=== PATIENT | female | born 2000 | race Two or more races ===

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

== ENCOUNTER 2023-02-16 16:54 | Outpatient (CLI) | payer MEDICAID ==
[2023-02-16 20:51] LABS: BASOPHILS % (AUTO) 0.5 %; EOSINOPHILS # (AUTO) 0.2 10^3/uL (0.0-0.7); EOSINOPHILS % (AUTO) 2.2 %; HCT - HEMATOCRIT 38.3 % (37.0-47.0); HGB - HEMOGLOBIN 12.4 g/dL (12.0-16.0); LYMPHOCYTES # (AUTO) 2.4 10^3/uL (1.5-3.5); LYMPHOCYTES % (AUTO) 27.1 %; MEAN CORPUSCULAR HEMOGLOBIN 26.6 pg (27.0-31.0); MEAN CORPUSCULAR HGB CONC 32.4 g/dL (32.0-36.0); MEAN PLATELET VOLUME 10.5 fL (7.9-10.8); MONOCYTES # (AUTO) 0.6 10^3/uL (0.0-1.0); MONOCYTES % (AUTO) 6.3 %; NEUTROPHILS # (AUTO) 5.6 10^3/uL (1.5-6.6); NEUTROPHILS % (AUTO) 63.7 %; PLT - PLATELET COUNT 336 10^3/uL (130-450); RED BLOOD COUNT 4.67 10^6/uL (4.20-5.40); WHITE BLOOD COUNT 8.8 x10^3/uL (4.8-10.8)
[2023-02-16 21:12] LABS: CALCIUM 9.8 mg/dL (8.5-10.3); CREATININE 0.6 mg/dL (0.6-1.3); POTASSIUM 3.5 mmol/L (3.5-4.5)
[2023-02-16 21:18] LABS: THYROID STIMULATING HORMONE 1.45 uIU/mL (0.34-5.60)
[2023-02-17 01:17] LABS: BACTERIAL VAGINOSIS DNA NEGATIVE (NEGATIVE); CANDIDA GLABRATA DNA NEGATIVE (NEGATIVE); CANDIDA GROUP DNA NEGATIVE (NEGATIVE); CANDIDA KRUSEI DNA NEGATIVE (NEGATIVE); TRICHOMONAS VAGINALIS DNA NEGATIVE (NEGATIVE)
[2023-02-18 04:09] LABS: HIV SCREEN 4TH GENERATION Non Reactive (Non Reactive); HSV 2 IGG TYPE SPEC <0.91 index (0.00-0.90)
[2023-02-18 06:10] LABS: RPR Non Reactive (Non Reactive)
== END 2023-02-16 16:55 | disposition home or self-care (01) ==
LOC: LAB.N 16:54
PROVIDERS: ATTEND Physician Assistant
DX: D64.9 Anemia, unspecified (principal); Z20.2 Contact with and (suspected) exposure to infections with a predominantly sexual mode of transmission; N94.10 Unspecified dyspareunia; N93.0 Postcoital and contact bleeding
CPT/HCPCS: 36415; 80048; 81514; 84443; 85025; 86592; 86695; 86696; 87389